=== PATIENT | male | born 1945 | race Hispanic/Latino ===

== ENCOUNTER 2021-09-24 11:17 | Emergency (ER) | payer OTHER ==
[~2021-09-24] VITALS: Ht 167.6 cm; Wt 61.2 kg
[2021-09-24 12:27] LABS: BASOPHILS % (AUTO) 0.3 % (0.0-5.0); EOSINOPHILS % (AUTO) 1.4 % (0.0-8.0); HEMATOCRIT 34.4 % (42-54); LYMPHOCYTES % (AUTO) 28.7 % (21.0-51.0); MEAN CORPUSCULAR HEMOGLOBIN 28.8 pg (27.0-33.0); MEAN CORPUSCULAR HGB CONC 31.4 g/dL (32.0-36.0); MEAN CORPUSCULAR VOLUME 91.7 fL (79-99); MONOCYTES % (AUTO) 6.5 % (3.0-13.0); NEUTROPHILS % (AUTO) 62.6 % (40.0-77.0); PLATELET COUNT (AUTO) 204 K/uL (130-400); RED BLOOD CELL COUNT(AUTO) 3.75 MIL/uL (4.50-6.20); RED CELL DISTRIBUTION WIDTH 15.8 % (11.0-15.5); WHITE BLOOD COUNT (AUTO) 11.6 K/uL (4.8-10.8)
[2021-09-24 12:34] LABS: CREATININE 1.7 mg/dL (0.5-1.5); POTASSIUM 4.2 mmol/L (3.5-5.1)
[2021-09-24 12:43] LABS: ALBUMIN 3.1 g/dL (3.5-5.0); BILIRUBIN,TOTAL 0.2 mg/dL (0.2-1.0); CRP QUANTITATIVE 6.8 mg/L (0.00-9.0); TOTAL PROTEIN, SERUM 7.1 g/dL (6.0-8.3)
[2021-09-24 12:55] LABS: B-TYPE NATRIURETIC PEPTIDE 30 pg/mL (0-100)
[2021-09-24 13:48] LABS: APPEARANCE,URINE Clear (CLEAR); BILIRUBIN,URINE Negative (NEGATIVE); COLOR,URINE Yellow (YELLOW); GLUCOSE, URINE (UA) Negative (NEGATIVE); KETONES,URINE Negative (NEGATIVE); LEUKOCYTE ESTERASE ,URINE Negative (NEGATIVE); NITRATE,URINE Negative (NEGATIVE); OCCULT BLOOD,URINE Negative (NEGATIVE); PROTEIN,URINE POS 1+ mg/dL (NEGATIVE); UROBILINOGEN,URINE 0.2 mg/dL (0.2-1.0)
[2021-09-24 14:09] LABS: BACTERIA,URINE Rare /HPF (None Seen); MUCUS,URINE Few LPF (None Seen); RBC,URINE 0-1 /HPF (0-1); SQUAMOUS EPITHELIAL CELL,UR Few /HPF (0-2)
[2021-09-24 15:24] VITALS: BP 127/66
[2021-09-24 16:47] LABS: ABG BASE EXCESS -12.2 mmol/L (-2.0-3.0); ABG HCO3 12.9 mmol/L (21.0-28.0); ABG PCO2 27 mmHg (35-48)
[2021-09-24 16:49] LABS: ABG OXYGEN SATURATION 97.5 % (95.0-99.0)
== END 2021-09-24 16:15 | disposition home or self-care (01) ==
LOC: EDH 11:17
DX: E87.2 Acidosis (principal); I11.0 Hypertensive heart disease with heart failure; E78.00 Pure hypercholesterolemia, unspecified; Z90.49 Acquired absence of other specified parts of digestive tract; Z93.3 Colostomy status
CPT/HCPCS: 36415; 36600; 71045; 76770; 80053; 81001; 82435; 82550; 82803; 82947; 83605; 83880; 84132; 84145; 84295; 84484; 85018; 85025; 86140; 87040; 87088; 93005

== ENCOUNTER 2022-10-25 20:35 | Emergency (ER) | payer OTHER ==
[~2022-10-25 20:35] MED LIST: FINA5TAB41 PO; LEVO25CA4 PO; TAMS-1 PO
[2022-10-26] MEDS ORDERED: SACU1TAB7 PO (10:36)
[2022-10-26] MEDS ORDERED: ACET-2079 PO (10:36)
[2022-10-26] MEDS ORDERED: APIX5TAB PO (10:36)
[2022-10-26] MEDS ORDERED: ACET-66 PO (10:36)
[2022-10-26] MEDS ORDERED: FAMO20TA8 PO (10:36)
[2022-10-26] MEDS ORDERED: FURO20TA4 PO (10:36)
[2022-10-26] MEDS ORDERED: VIT1CAPS47 PO (10:36)
[2022-10-31] MEDS ORDERED: XALA2.5OS OU (18:59)
== END 2022-10-25 21:01 | disposition left against medical advice (07) ==
LOC: EDH 20:35
DX: R68.89 Other general symptoms and signs (principal); Z53.21 Procedure and treatment not carried out due to patient leaving prior to being seen by health care provider

== ENCOUNTER 2022-10-26 09:10 | Emergency (ER) | payer OTHER ==
[~2022-10-26] VITALS: Ht 167.6 cm; Wt 66.2 kg
[2022-10-26 09:44] LABS: BASOPHILS % (AUTO) 0.3 % (0.0-5.0); EOSINOPHILS % (AUTO) 0.5 % (0.0-8.0); HEMATOCRIT 35.4 % (42-54); LYMPHOCYTES % (AUTO) 20.9 % (21.0-51.0); MEAN CORPUSCULAR HGB CONC 33.1 g/dL (32.0-36.0); MEAN CORPUSCULAR VOLUME 96.7 fL (79-99); MONOCYTES % (AUTO) 6.9 % (3.0-13.0); PLATELET COUNT (AUTO) 167 K/uL (130-400); RED BLOOD CELL COUNT(AUTO) 3.66 MIL/uL (4.50-6.20); WHITE BLOOD COUNT (AUTO) 11.1 K/uL (4.8-10.8)
[2022-10-26 10:01] LABS: APPEARANCE,URINE CLEAR (CLEAR); BILIRUBIN,URINE NEGATIVE (NEGATIVE); COLOR,URINE YELLOW (YELLOW); GLUCOSE, URINE (UA) NEGATIVE (NEGATIVE); KETONES,URINE NEGATIVE (NEGATIVE); LEUKOCYTE ESTERASE ,URINE NEGATIVE Leu/uL (NEGATIVE); NITRATE,URINE NEGATIVE (NEGATIVE); OCCULT BLOOD,URINE NEGATIVE (NEGATIVE); PH,URINE 5.5 (5.0-8.0); PROTEIN,URINE 20 mg/dL (NEGATIVE); UROBILINOGEN,URINE 3 mg/dL (0.2-1.0)
[2022-10-26 10:04] LABS: CREATININE 1.1 mg/dL (0.5-1.5); POTASSIUM 3.5 mmol/L (3.5-5.1)
[2022-10-26 10:08] LABS: CREATINE KINASE, TOTAL 104 U/L (21-232); LIPASE 103 U/L (114-286)
[2022-10-26 10:17] LABS: ALBUMIN 3.5 g/dL (3.5-5.0); TOTAL PROTEIN, SERUM 7.3 g/dL (6.0-8.3)
[2022-10-26 10:33] LABS: INR 1.17 (0.85-1.15); PROTHROMBIN TIME 12.6 SEC (9.6-11.6)
[2022-10-26 10:34] LABS: PARTIAL THROMBOPLASTIN TIME 39.5 SEC (26.3-35.5)
[2022-10-26] MEDS ORDERED: ACET-2079 PO (10:36)
[2022-10-26] MEDS ORDERED: FURO20TA4 PO (10:36)
[2022-10-26] MEDS ORDERED: APIX5TAB PO (10:36)
[2022-10-26] MEDS ORDERED: VIT1CAPS47 PO (10:36)
[2022-10-26] MEDS ORDERED: SACU1TAB7 PO (10:36)
[2022-10-26] MEDS ORDERED: FAMO20TA8 PO (10:36)
[2022-10-26] MEDS ORDERED: ACET-66 PO (10:36)
[2022-10-26] MEDS ORDERED: IOHEXOL 350 MG/ML 100ML INFUS..BTL IV ONE (11:04)
[2022-10-26 11:05] LABS: BACTERIA,URINE RARE /HPF (None Seen); MUCUS,URINE RARE LPF (None Seen); SQUAMOUS EPITHELIAL CELL,UR RARE /HPF (0-2); WBC,URINE 0-1 /HPF (0-1)
[2022-10-26 14:58] VITALS: BP 134/62
[2022-10-31] MEDS ORDERED: XALA2.5OS OU (18:59)
== END 2022-10-26 14:57 | disposition left against medical advice (07) ==
LOC: EDH 09:10
DX: K83.1 Obstruction of bile duct (principal); I10 Essential (primary) hypertension; E78.00 Pure hypercholesterolemia, unspecified; Z79.899 Other long term (current) drug therapy; Z90.49 Acquired absence of other specified parts of digestive tract
CPT/HCPCS: 99285; 74177; 76705; 71045; 82550; 84484; 80053; 83690; 85025; 85610; 85730; 81001; 36415; 93005; Q9967

== ENCOUNTER → 2024-02-23 | Outpatient (CLI) | payer OTHER ==
[~2024-02-23] MED LIST changes: +APIX5TAB PO; +FAMO20TA8 PO; +FURO20TA4 PO; +SACU1TAB7 PO; +VIT1CAPS47 PO; +XALA2.5OS OU
== END | disposition home or self-care (01) ==
LOC: SHCH 08:18
PROVIDERS: ATTEND Internal Medicine Cardiovascular Disease
DX: I08.3 Combined rheumatic disorders of mitral, aortic and tricuspid valves (principal); R06.02 Shortness of breath
CPT/HCPCS: 93306

== ENCOUNTER → 2024-03-14 | Outpatient (CLI) | payer OTHER | END | disposition home or self-care (01) | LOC: SHCH 08:32 | PROVIDERS: ATTEND Internal Medicine Cardiovascular Disease | DX: I87.2 Venous insufficiency (chronic) (peripheral) (principal); I73.9 Peripheral vascular disease, unspecified | CPT/HCPCS: 93925; 93970 ==